=== PATIENT | female | born 1955 | race Caucasian/White ===

== ENCOUNTER 2018-05-25 12:37 | Emergency (ER) | payer BC ==
[~2018-05-25] VITALS: Ht 162.6 cm; Wt 81.7 kg
[~2018-05-25 12:37] MED LIST: AMBEREN; FLUZONE 2045 MCG/011; LOVENOX; NORCO 5-325 TA1 EACH; OXYCODONE HCL5 M1; PNEUMOVAX25 MCG/0.5
[2018-05-25 14:04] LABS: ABSOLUTE BASOPHILS 0.1 thou/uL (0.0-0.2); ABSOLUTE EOSINOPHILS 0.1 thou/uL (0.0-0.7); ABSOLUTE LYMPHOCYTES 2.4 thou/uL (0.8-5.3); ABSOLUTE MONOCYTES 0.9 thou/uL (0.0-1.2); ABSOLUTE NEUTROPHILS 8.9 thou/uL (1.6-8.1); BASOPHILS 0.8 %; HEMATOCRIT 35.8 % (37.0-47.0); LYMPHOCYTES 19.1 %; MCH 30.4 pg (26.0-34.0); MCHC 33.6 g/dL (28.0-37.0); MCV 90.4 fL (80.0-100.0); MONOCYTES 7.6 %; MPV 6.7 fl. (7.2-11.1); NUCLEATED RBCS 0 /100WBC; PLATELET COUNT* 323 thou/uL (150-400); POLYS 71.5 %; RBC 3.96 mil/uL (4.20-5.00); RDW-CV 13.4 % (10.5-14.5); WBC 12.5 thou/uL (4.0-11.0)
[2018-05-25 14:13] LABS: CALCIUM 8.8 mg/dL (8.5-10.1); CREATININE 0.9 mg/dL (0.6-1.3); PROTIME 9.8 Seconds (9.20-11.50)
[2018-05-25 14:17] LABS: ALBUMIN 3.3 g/dL (3.4-5.0); TOTAL BILIRUBIN 0.4 mg/dL (<0.1-1.0); TOTAL PROTEIN 7.6 g/dL (6.4-8.2)
[2018-05-25] MEDS ORDERED: AMOXICILLIN875 MG PO (14:39)
[2018-05-25 14:48] VITALS: BP 188/87
== END 2018-05-25 14:49 | disposition home or self-care (01) ==
LOC: M.ERS 12:37
PROVIDERS: Personal Emergency Response Attendant
DX: S39.011A Strain of muscle, fascia and tendon of abdomen, initial encounter (principal); S70.01XA Contusion of right hip, initial encounter; F17.210 Nicotine dependence, cigarettes, uncomplicated; X58.XXXA Exposure to other specified factors, initial encounter; Y93.89 Activity, other specified; Y92.89 Other specified places as the place of occurrence of the external cause; Y99.8 Other external cause status